=== PATIENT | male | born 1990 | race Caucasian/White ===

== ENCOUNTER 2017-08-29 12:26 | Emergency (ER) | payer BC, OTHER ==
[~2017-08-29 12:26] MED LIST: Sodium Chloride 0.9% 1,000 ML BAG ONE
[2017-08-29] MEDS ORDERED: Ondansetron ODT 4 MG TAB ONE (12:55)
[2017-08-29 13:47] LABS: Mean Corpuscular HGB CONC 33.9 g/dL (32.0-36.0); Mean Corpuscular Hemoglobin 29.5 pg (27.0-31.0); Mean Platelet Volume 6.7 fL (7.4-10.4); Platelet Count 242 thou/uL (130-400); RBC Distribution Width 11.4 % (11.5-14.5); Red Blood Cell (RBC) Count 5.76 mill/uL (4.70-6.10)
--- NOTE | 2017-08-29 13:49 | RAD ---
FRONTAL VIEW CHEST: CLINICAL HISTORY: Cough. COMPARISON: No prior comparison. FINDINGS: There is no lobar consolidation, effusion, or discrete pneumothorax. Shallow depth of inspiration, a long with portable technique, does accentuate the cardiac silhouette and pulmonary vasculature. IMPRESSION: No focal consolidation. POS: [facility]
[2017-08-29 14:03] LABS: ALT (SGPT) 37 U/L (8-55); AST (SGOT) 40 U/L (5-34); Albumin 4.3 g/dL (3.5-5.0); Alkaline Phosphatase 67 U/L (40-150); Anion Gap 19 mmol/L (10-20); BUN (Urea Nitrogen) 11 mg/dL (8.9-20.6); Bilirubin, Total 0.5 mg/dL (0.2-1.2); Calc. Creatinine Clearance 0 mL/min (70-130); Calcium 8.9 mg/dL (7.8-10.44); Carbon Dioxide 22 mmol/L (22-29); Chloride 104 mmol/L (98-107); Estimated GFR-MDRD Greater than 90; Glucose 96 mg/dL (70-105); Protein, Total 8.3 g/dL (6.0-8.3); Sodium 141 mmol/L (136-145)
[2017-08-29 14:05] LABS: Band 7 % (5-11); Lymphocytes 33 % (21-51); MDiff Complete? YES; Monocytes 9 % (0-10); Neutrophil 51 % (42-75); PLT Morphology Comment Appears Adequate; RBC Morphology Normal
== END 2017-08-29 14:41 | disposition home or self-care (01) ==
LOC: MADERS 12:26
DX: B34.9 Viral infection, unspecified (principal)
CPT/HCPCS: 71045; 80053; 85025; 96360; J7050; Q0162

== ENCOUNTER 2018-04-03 20:36 | Emergency (ER) | payer OTHER | END 2018-04-03 22:24 | disposition home or self-care (01) | LOC: MADERS 20:36 | DX: E86.0 Dehydration (principal); I10 Essential (primary) hypertension; F17.210 Nicotine dependence, cigarettes, uncomplicated | CPT/HCPCS: 36416; 96360; J7050 ==